=== PATIENT | male | born 1960 | race Asian ===

== ENCOUNTER 2017-07-12 07:59 | Outpatient (CLI) | payer OTHER ==
[~2017-07-12 07:59] MED LIST: AMLO10TA PO; AZOR1 TA3 PO; COZAAR100 MG PO; METO100T37 PO
== END 2017-07-12 09:00 | disposition home or self-care (01) ==
LOC: LABW 07:59
DX: R73.9 Hyperglycemia, unspecified (principal)
CPT/HCPCS: 36415; 82947; 83036

== ENCOUNTER 2020-04-25 09:16 | Outpatient (CLI) | payer OTHER | END 2020-04-25 19:52 | disposition home or self-care (01) | LOC: US 09:16 | DX: R79.89 Other specified abnormal findings of blood chemistry (principal) ==

== ENCOUNTER 2020-09-11 10:39 | Outpatient (CLI) | payer OTHER | END 2020-09-11 23:05 | disposition home or self-care (01) | LOC: RAD 10:39 | DX: M25.561 Pain in right knee (principal) ==

== ENCOUNTER 2020-12-06 13:38 | Outpatient (CLI) | payer OTHER | END 2020-12-06 21:57 | disposition home or self-care (01) | LOC: INF 13:38 | PROVIDERS: ATTEND Internal Medicine Endocrinology, Diabetes & Metabolism | DX: Z23 Encounter for immunization (principal) | CPT/HCPCS: 96372 ==

== ENCOUNTER 2020-12-08 09:00 | Emergency (ER) | payer OTHER ==
[~2020-12-08] VITALS: Ht 185.4 cm; Wt 101.2 kg
[2020-12-08 09:00] VITALS: TEMP 97.9
[2020-12-08 09:57] LABS: PLATELET COUNT 242 K/uL (142-355)
[2020-12-08 10:04] LABS: POTASSIUM 3.8 mmol/L (3.6-5.2)
[2020-12-08 11:00] VITALS: BP 136/90
== END 2020-12-08 11:05 | disposition home or self-care (01) ==
LOC: ED 09:11
PROVIDERS: Emergency Medicine Emergency Medical Services
DX: I10 Essential (primary) hypertension (principal); B34.9 Viral infection, unspecified; Z03.818 Encounter for observation for suspected exposure to other biological agents ruled out
CPT/HCPCS: 80053; 85027; 87635; 99284; U0003

== ENCOUNTER 2021-01-03 13:37 | Outpatient (CLI) | payer OTHER | END 2021-01-03 22:51 | disposition home or self-care (01) | LOC: INF 13:37 | PROVIDERS: ATTEND Internal Medicine Endocrinology, Diabetes & Metabolism | DX: Z23 Encounter for immunization (principal) | CPT/HCPCS: 96372 ==

== ENCOUNTER 2021-03-03 09:54 | Outpatient (CLI) | payer OTHER ==
[2021-03-03 10:20] LABS: POTASSIUM 4.6 mmol/L (3.6-5.2)
== END 2021-03-03 19:51 | disposition home or self-care (01) ==
LOC: LABW 09:54
PROVIDERS: ATTEND Internal Medicine Cardiovascular Disease
DX: I10 Essential (primary) hypertension (principal)
CPT/HCPCS: 36415; 80048

== ENCOUNTER 2021-11-13 08:58 | Outpatient (CLI) | payer OTHER | END 2021-11-13 18:58 | disposition home or self-care (01) | LOC: CT 08:58 | PROVIDERS: ATTEND Physician Assistant | DX: K45.8 Other specified abdominal hernia without obstruction or gangrene (principal) | CPT/HCPCS: 36415; 82565; 84520; Q9963 ==

== ENCOUNTER 2022-07-31 01:04 | Inpatient (IN) | payer OTHER ==
[2022-07-31] VITALS (11 sets, daily range): BP systolic 91–143; BP diastolic 63–74; TEMP 97.4–98.4
[~2022-07-31] VITALS: Ht 185.4 cm; Wt 98.7 kg
[2022-07-31] MEDS ORDERED: METF500T PO (01:13)
[2022-07-31] MEDS ORDERED: COZAAR25 MG PO (01:14)
[2022-07-31 02:26] LABS: PLATELET COUNT 233 K/uL (142-355)
[2022-07-31 02:34] LABS: POTASSIUM 4.5 mmol/L (3.6-5.2)
[2022-07-31 02:35] LABS: PARTIAL THROMBOPLASTIN TIME 19.2 SECONDS (24.5-33.6)
[2022-07-31 08:13] LABS: PLATELET COUNT 194 K/uL (142-355)
[2022-07-31] MEDS ORDERED: SPIR50TA8 PO (09:41)
[2022-07-31] MEDS ORDERED: AMLODIPINE 10 MG PO (09:41)
[2022-07-31] MEDS ORDERED: METFTAB PO (09:42)
[2022-07-31] MEDS ORDERED: HYDR25TA60 PO (09:42)
[2022-07-31] MEDS ORDERED: TYLENOL325 MG PO (09:43)
[2022-08-01] VITALS: BP 118/68; TEMP 98.3
[2022-08-01 04:00] VITALS: BP 108/68; TEMP 98.7
[2022-08-01 07:34] LABS: PLATELET COUNT 160 K/uL (142-355)
[2022-08-01 07:42] LABS: POTASSIUM 4.4 mmol/L (3.6-5.2)
[2022-08-01 08:00] VITALS: BP 113/68; TEMP 98.4
[2022-08-01 12:24] VITALS: BP 112/66; TEMP 97.7
[2022-08-01] MEDS ORDERED: METF500T PO (13:18)
[2022-08-01] MEDS ORDERED: COZAAR25 MG PO (13:18)
[2022-08-01] MEDS ORDERED: AMLODIPINE 10 MG PO (13:19)
[2022-08-01] MEDS ORDERED: SPIR50TA8 PO (13:24)
[2022-08-01] MEDS ORDERED: AMLODIPINE 5 MG PO (13:24)
== END 2022-08-01 14:55 | disposition home or self-care (01) | DRG 684 ==
LOC: ED 01:04 → MED/SURG 02:58
PROVIDERS: ADMIT Family Medicine; ATTEND Internal Medicine
DX: N17.8 Other acute kidney failure (principal); E86.0 Dehydration; I10 Essential (primary) hypertension; E11.65 Type 2 diabetes mellitus with hyperglycemia; K21.9 Gastro-esophageal reflux disease without esophagitis
CPT/HCPCS: 36415; 36600; 80053; 80307; 81002; 82150; 82550; 82805; 82948; 83036; 83690; 83735; 84100; 84443; 84484; 85027; 85379; 85610; 85730; 87040; 87635; 93005; 96360; 96361; 96374; 96375; 99284; J1815; J2405; J3490; U0003

== ENCOUNTER → 2022-08-28 | Outpatient (CLI) | payer OTHER ==
[~2022-08-28] MED LIST changes: +AMLODIPINE 10 MG PO; +AMLODIPINE 5 MG PO; +COZAAR25 MG PO; +HYDR25TA60 PO; +METF500T PO; +METFTAB PO; +SPIR50TA8 PO; +TYLENOL325 MG PO
[2022-08-28 11:43] LABS: POTASSIUM 4.6 mmol/L (3.6-5.2)
== END ==
LOC: LABW 11:17
PROVIDERS: ATTEND Internal Medicine Cardiovascular Disease
DX: Z79.899 Other long term (current) drug therapy (principal)
CPT/HCPCS: 36415; 80048

== ENCOUNTER 2024-01-13 10:46 | Outpatient (CLI) | payer OTHER | END 2024-01-13 18:52 | disposition home or self-care (01) | LOC: RAD 10:46 | PROVIDERS: ATTEND Internal Medicine | DX: R05.3 Chronic cough (principal) ==